=== PATIENT | female | born 1950 | race Caucasian/White ===

== ENCOUNTER 2020-07-17 08:46 | Outpatient (CLI) | payer MEDICARE, SELFPAY | END 2020-07-17 08:47 | disposition home or self-care (01) | LOC: ANHAUDIO 08:47 | PROVIDERS: PCP Family Medicine Adolescent Medicine; Visit Provider Family Medicine Adolescent Medicine | DX: H90.3 Sensorineural hearing loss, bilateral (principal) | CPT/HCPCS: 92557; 92567 ==

== ENCOUNTER → 2020-08-31 14:51 | Outpatient (CLI) | payer MEDICARE, SELFPAY ==
--- NOTE | ~2020-08-31 | MM_ITS ---
EXAMINATION: MM screening [facility] BI w amelie HISTORY: Screening mammogram TECHNIQUE: Craniocaudal and mediolateral oblique 3-D tomosynthesis images were obtained and synthetic 2-D images were generated. CAD analysis was submitted and interpreted. COMPARISON: 12/24/2018, 11/26/2017, bilateral digital screening mammogram examinations BREAST PARENCHYMAL COMPOSITION: There are scattered areas of fibroglandular density. FINDINGS: There are occasional benign calcifications. There is no evidence of suspicious mass, calci fication, or architectural distortion to suggest malignancy in either breast. There has been no suspi cious interval change. IMPRESSION: 1. No mammographic evidence of malignancy. 2. Recommend routine screening mammography in one year. BI-RADS Category 2: Benign finding(s). Reviewed, dictated and finalized at location A. NING DIRECTOR
== END ==
PROVIDERS: PCP Family Medicine Adolescent Medicine; Visit Provider Family Medicine Adolescent Medicine
DX: Z12.31 Encounter for screening mammogram for malignant neoplasm of breast (principal)
CPT/HCPCS: 77063; 77067

== ENCOUNTER → 2020-12-24 01:47 | Outpatient (CLI) | payer MEDICARE, SELFPAY ==
[2020-12-24 20:12] LABS: SARS-CoV-2 RNA PCR Negative
== END ==
PROVIDERS: PCP Family Medicine Adolescent Medicine; Visit Provider Plastic Surgery
DX: Z01.812 Encounter for preprocedural laboratory examination (principal); Z20.822 Contact with and (suspected) exposure to COVID-19
CPT/HCPCS: C9803; U0003; U0005

== ENCOUNTER 2020-12-24 09:38 | Outpatient (CLI) | payer MEDICARE, SELFPAY ==
[2020-12-24 10:31] LABS: Anion Gap 7 mmol/L (8-16); Blood Urea Nitrogen 16 mg/dL (7-17); Calcium 10.1 mg/dL (8.4-10.2); Carbon Dioxide 30 mmol/L (22-30); Chloride 107 mmol/L (98-107); Estimated Glomerular Filt Rate > 60; Glucose 158 mg/dL (65-105); Potassium 4.2 mmol/L (3.4-5.0); Sodium 144 mmol/L (137-145)
--- NOTE | 2020-12-24 11:00 | ECG_ITS ---
Measurements Intervals [place] Rate: 51 P: 52 KS: 166 QRS: -39 QRSD: 92 T: 0 QT: 420 QTc: 389 Interpretive Statements SINUS BRADYCARDIA POSSIBLE LEFT ATRIAL ENLARGEMENT LEFT AXIS DEVIATION INCOMPLETE RIGHT BUNDLE BRANCH BLOCK VOLTAGE CRITERIA FOR LVH POOR R WAVE PROGRESSION, ANTERIOR LEADS BORDERLINE T WAVE ABNORMALITY- INFERIOR LEADS BASELINE ARTIFACT- I, II, III, AVR, AVL, AVF BORDERLINE ECG Electronically Signed On 12-24-2020 9:56:45 CDT by Pee Shankar D.O.
== END 2020-12-24 09:39 | disposition home or self-care (01) ==
LOC: ANHSURGERY 09:41
PROVIDERS: Anesthesiology; PCP Family Medicine Adolescent Medicine; Visit Provider Plastic Surgery
DX: E11.9 Type 2 diabetes mellitus without complications (principal); I10 Essential (primary) hypertension; Z01.818 Encounter for other preprocedural examination; I45.10 Unspecified right bundle-branch block
CPT/HCPCS: 36415; 80048; 93005

== ENCOUNTER 2020-12-27 02:54 | Day surgery (SDC) | payer MEDICARE, SELFPAY ==
[2020-12-20 14:34] VITALS: BMI 32.9
[2020-12-27] VITALS (7 sets, daily range): BP systolic 132–184; BP diastolic 61–96; PULSE 50–56; RESP 10–16; TEMP 36.3–37.5; O2SAT 98–100
--- NOTE | ~2020-12-27 | NM_ITS ---
EXAMINATION: NM sentinel node w imaging EXAM DATE: 12/27/2020 09:59 INDICATION: Melanoma rt forearm. TECHNIQUE: 0.53 mCi Tc-99m Lymphoseek was injected in 2 separate aliquots on either side of the right forearm melanoma biopsy site. Planar images were obtained following this. FINDINGS: After proximally 45 minutes, a focus of activity was demonstrated, appears to be in the an terior aspect of the right axilla, consistent with patient's [place] node for the biopsy site. Elisabeth nt was then transferred to the preoperative area. IMPRESSION: Right axillary sentinel lymph node identified. Reviewed, dictated and finalized at location A.
--- NOTE | 2020-12-27 07:29 | WPDHPUPDATE1 ---
History and Physical Update Update Date/Time: 12/27/20 07:29 History and Physical has been reviewed, including an updated exam of the patient. There are NO changes in the patient's condition. Risks, benefits, and alternatives have been discussed and questions answered. Patient agrees to proceed with procedure.
--- NOTE | 2020-12-27 08:29 | WPDANESEPPF ---
Anes - Initial Pre Proc Eval Procedure: Operation Date: 12/27/20 10:45 Proposed Procedures p Wide Excision Melanoma Right Mid Flexor Forearm with Emeigh Lymph Node Biopsy - Juan White MD Date/Time: 12/27/20 08:29 Surgeon: Juan White MD Pre Op Diagnosis: melanoma right mid flexor forearm Patient Data Age: 70 Gender: F Height: 5 ft 4 in Weight: 87 kg Allergies Allergy/AdvReac Type Severity Reaction Status Date / Time niacin Allergy Intermediate SWELLING Verified 12/20/20 14:30 Home Medications Medication Instructions Recorded Confirmed Type atorvastatin 40 mg PO QAM 12/20/20 12/20/20 History lisinopril 20 mg PO QAM 12/20/20 12/20/20 History metformin 500 mg PO QAM 12/20/20 12/20/20 History metoprolol succinate 200 mg PO QAM 12/20/20 12/20/20 History jgdkwcmljmau-Hz-dsvc-minerals 1 tablet PO QAM 12/20/20 12/20/20 History [Women's Multiple Vitamins] Patient hx anesthesia problems: none Family hx anesthesia problems: none PMFSH Past Medical History Medical History Diabetes Hyperlipidemia Hypertension Melanoma Social History Social History Smoking status: Never smoker Alcohol intake: never Substance use: never Living arrangements: with family Additional living arrangements comments: HUSB Spiritual care concerns: No Anes - Eval Final PreProcedure Day of Procedure 12/27/20 08:29 Patient weight: obese Heart: regular rate and rhythm Lungs: clear to auscultation Airway: Mallampati scale class II Neurological: alert and oriented Last oral intake: >/= 8 hours ASA classification: III Emergent: no Anesthetic plan: proceed Anesthesia type and monitoring: general LMA and standard monitoring Informed Consent: The patient's anesthetic plan and its attendant risks and benefits were discussed with the patient/family/POA. Questions were solicited and answers provided to the satisfaction of the patient/family/POA.
[2020-12-27] MEDS: LACTATED RINGERS 1,000 ML 30 ML IV CONT ×2 (08:40→12:09)
[2020-12-27 08:51] LABS: Glucose Point of Care 174 (65-105)
[2020-12-27] MEDS: SCOPOLAMINE 1.5 MG PATCH TRANSDERM (09:55)
--- NOTE | 2020-12-27 12:00 | PM.OP ---
Procedure Note - Brief Procedure Note - Brief Date of procedure: 12/27/20 Pre-op diagnosis: melanoma right mid flexor forearm Post-op diagnosis: same Procedure performed: Wide, 2.5 cm, excision melanoma right mid flexor forearm with intermediate repair 9.0 cm. and sentinel lymph node biopsy. Anesthesia: GLMA Surgeon: Juan White MD Cupola Melter Helper: Lorena Saxena Estimated blood loss (mL): 10 Tourniquet time (min): 0 Drains: No Packing: No Pathology: yes Complications: No immediate complications Condition: stable Disposition: PACU
--- NOTE | 2020-12-27 12:29 | P.OP_ITS ---
Procedure Note - Detailed Date of procedure: 12/27/20 Pre-op diagnosis: melanoma right mid flexor forearm Post-op diagnosis: same Procedure performed: 2.5 cm excision melanoma of the right mid flexor forearm with intermediate repair 9 cm and right axillary sentinel lymph node biopsy Description of procedure: The patient was marked for the primary tumor site on the forearm and the left axillary sentinel node site identified in [facility] earlier in the morning. The patient was taken to the operating room placed supine on the operating table. She was given general anesthesia with LMA. The right upper extremity and chest were prepped and draped in usual fashion. The probe was immediately brought up to identify the site in the axilla. This appeared to be high in the axilla consistent with a lateral group location. We proceeded to aguilar, anesthetize and incise that site. Dissection was carried through the subcutaneous tissue to the axillary fat pad. The signal from the axillary node was easily identified. This was found in the upper axilla. Dissection was done with digital and cautery dissection primarily. A couple of pedicles were ligated with 3-0 Vicryl. The lymph node was brought out and the count was 227 at the node and 12 in the remaining axillary tissue. A few bleeding points were electrocoagulated. This wound was closed with 3-0 Vicryl and the superficial fascia and dermis. The skin was closed with a running intradermal 4-0 Monocryl suture and glue was applied over that. Markings were made around the forearm biopsy site measuring just over a cm perpendicular to the long axis. This was tapered at both ends. The site was infiltrated with 1% lidocaine with epinephrine. No tourniquet was used. This excision was carried out through the superficial fascia. Larger veins and nerves on the deep fascia were not disturbed.. The subcutaneous tissue was undermined at least a cm in all directions allowing the wound closure be done without significant tension sutures were placed in the superficial fascia using 3-0 Vicryl and 3-0 Vicryl in the dermis. The skin was then closed with a running 5 0 nylon. Standing cones removed both ends. The soft bandage with Tegaderm was applied. The patient was discharged from the operating room in stable condition;. She has a prescription for hydrocodone 5/325 10. Surgeon: Juan White MD
== END 2020-12-27 13:27 | disposition home or self-care (01) ==
PROVIDERS: PCP Family Medicine Adolescent Medicine; Visit Provider Plastic Surgery
PROC: (CPT 11603; principal; 2020-12-27 10:45)
DX: C43.61 Malignant melanoma of right upper limb, including shoulder (principal); C77.3 Secondary and unspecified malignant neoplasm of axilla and upper limb lymph nodes; I10 Essential (primary) hypertension; E78.5 Hyperlipidemia, unspecified; E11.9 Type 2 diabetes mellitus without complications; Z79.84 Long term (current) use of oral hypoglycemic drugs; E66.9 Obesity, unspecified; Z68.33 Body mass index [BMI] 33.0-33.9, adult
CPT/HCPCS: 11603; 12034; 38525; 36415; 78195; 80048; 88305; 88307; 88342; 93005; A9270; A9520; C9803; J1100; J2250; J2405; J2704; J3010; J7120; U0003; U0005

== ENCOUNTER 2021-01-16 07:36 | Outpatient (CLI) | payer MEDICARE, SELFPAY ==
--- NOTE | ~2021-01-16 | CT_ITS ---
EXAMINATION: CT chest abdomen pelvis w con DATE: 01/16/2021 08:16 INDICATION: Malignant melanoma of right upper extremity TECHNIQUE: Computed tomography (CT) of the chest, abdomen, and pelvis was performed with 100 cc Omnip aque 350 intravenous contrast. Automated exposure control and iterative reconstruction technique were employed. Exam dose: 1158.56 mGy-cm total exam DLP. COMPARISON: None FINDINGS: CHEST CT: Probable postoperative change at the right axillary region, including some cutaneous fat stranding ex tending into the deeper subcutaneous fat minute right pectoralis major muscle laterally.. 1.3 x 1.7 cm complex mass is noted at the anterolateral margin of the left lobe of thyroid gland. No hilar or mediastinal mass lesion or lymphadenopathy. No thoracic aortic aneurysm or dissection. Normal heart size. There is extensive coronary artery calcifications in addition aortic and great ves dinesh calcification. Small sliding hiatal hernia. The lungs are clear of infiltrate or consolidation or mass density. ABDOMEN/PELVIS CT: There are occasional scattered hepatic cysts, the largest situated lateral left hepatic segment, mary uring up to 2.8 cm dimension. Hepatic steatosis. Status post cholecystectomy. No bile duct or pancreatic duct dilatation. Normal splenic size. No pancreatic mass lesion or calcification. Normal morphology of the adrenal glands. No renal mass lesion or urinary tract calculus or hydroureteronephrosis. There is extensive calcification of the abdominal aorta and iliac arteries but no aneurysm. No intrap eritoneal or retroperitoneal or pelvic mass lesion or adenopathy or ascites is detected. Normal appendix. No bowel obstruction, bowel wall thickening, pneumatosis or intraperitoneal free air . The uterus, adnexal areas and urinary bladder are unremarkable. Small bilateral fat-containing inguinal hernias. Small fat-containing umbilical hernia. There are degenerative changes apophyseal joints with associated grade 1 anterolisthesis at L4-5. No suspicious osteolytic or osteoblastic lesions. No skin or subcutaneous masses are noted otherwise. IMPRESSION: Postoperative changes at the right axillary area 1.3 x 1.77 a complex mass of the lateral lower left lobe of the thyroid gland; consider thyroid ultra sound for further evaluation as clinically appropriate Small sliding hiatal hernia Hepatic cysts Hepatic steatosis Status post cholecystectomy Reviewed, dictated and finalized at Location A. Reviewed, dictated and finalized at location A. IMPRESSION: Postoperative changes at the right axillary area 1.3 x 1.77 a complex mass of the lateral lower left lobe of the thyroid gland; consider thyroid ultrasound for further evaluation as clinically appropriate Small sliding hiatal hernia Hepatic cysts Hepatic steatosis Status post cholecystectomy
== END 2021-01-16 07:37 | disposition home or self-care (01) ==
PROVIDERS: PCP Family Medicine Adolescent Medicine; Visit Provider Internal Medicine Hematology & Oncology
DX: C43.61 Malignant melanoma of right upper limb, including shoulder (principal); K44.9 Diaphragmatic hernia without obstruction or gangrene; K76.89 Other specified diseases of liver; K76.0 Fatty (change of) liver, not elsewhere classified; Z90.49 Acquired absence of other specified parts of digestive tract
CPT/HCPCS: 71260; 74177; Q9967

== ENCOUNTER 2021-01-18 09:53 | Outpatient (CLI) | payer MEDICARE, SELFPAY ==
[2021-01-18 10:24] LABS: Basophils Absolute Auto 0.1 K/mm3 (0.0-0.1); Eosinophils Absolute Auto 0.1 K/mm3 (0-0.3); Eosinophils Percent Auto 1.8 % (0-4.4); Hematocrit 42.1 % (37.0-47.0); Hemoglobin 13.7 g/dL (12.0-15.0); Immature Granulocyte Absolute 0.02 K/mm3 (0.00-0.031); Immature Granulocyte Percent A 0.3 % (0-0.5); Lymphocytes Percent Auto 30.3 % (18.3-44.2); Mean Corpuscular HGB Conc 32.5 g/dl (32-36); Mean Corpuscular Hemoglobin 28.9 pg (26-34); Mean Corpuscular Volume 88.8 fl (80-100); Mean Platelet Volume 10.3 fl (7.4-10.4); Monocytes Absolute Auto 0.6 K/mm3 (0.1-0.6); Monocytes Percent Auto 9.4 % (2.6-8.5); Neutrophils Absolute Auto 3.6 K/mm3 (1.3-6.7); Neutrophils Percent Auto 57.2 % (45.5-73.1); Platelet Count Result 201 k/mm3 (150-375); Red Blood Count 4.74 M/mm3 (4.2-5.4); Red Cell Distribution Width 12.4 % (11.5-14.5); White Blood Count 6.3 K/mm3 (4.5-10.0)
[2021-01-18 10:34] LABS: INR 0.8
[2021-01-18 10:35] LABS: Partial Thromboplastin Time 26.8 SECONDS (22.3-36.8)
== END 2021-01-18 09:54 | disposition home or self-care (01) ==
LOC: ANHSURGERY 09:55
PROVIDERS: PCP Family Medicine Adolescent Medicine; Visit Provider Surgery
DX: Z01.818 Encounter for other preprocedural examination (principal); C43.9 Malignant melanoma of skin, unspecified
CPT/HCPCS: 36415; 85025; 85610; 85730

== ENCOUNTER → 2021-01-19 01:08 | Outpatient (CLI) | payer MEDICARE, SELFPAY ==
[2021-01-19 20:54] LABS: SARS-CoV-2 RNA PCR Negative
== END ==
PROVIDERS: PCP Family Medicine Adolescent Medicine; Visit Provider Surgery
DX: Z01.812 Encounter for preprocedural laboratory examination (principal); Z20.822 Contact with and (suspected) exposure to COVID-19
CPT/HCPCS: C9803; U0003; U0005

== ENCOUNTER 2021-01-23 04:50 | Day surgery (SDC) | payer MEDICARE, SELFPAY ==
[2021-01-17 08:18] VITALS: BMI 32.9
--- NOTE | 2021-01-22 14:36 | WPDANESEPPF ---
Anes - Initial Pre Proc Eval Procedure: Operation Date: 01/23/21 12:00 Proposed Procedures p Insertion Gerald Cath - Andrade Smyth MD Date/Time: 01/22/21 14:36 Surgeon: Andrade Smyth MD Pre Op Diagnosis: malignant melanoma of right upper extremity Patient Data Age: 71 Gender: F Height: 1.63 m Weight: 87 kg Allergies Allergy/AdvReac Type Severity Reaction Status Date / Time niacin Allergy Severe SWELLING Verified 01/23/21 10:02 OF LIPS/TONGUE Home Medications Medication Instructions Recorded Confirmed Type atorvastatin 40 mg PO QAM 12/20/20 01/23/21 History lisinopril 20 mg PO QAM 12/20/20 01/23/21 History metformin 500 mg PO QAM 12/20/20 01/23/21 History metoprolol succinate 200 mg PO QAM 12/20/20 01/23/21 History ozxrizwhpwfe-Xw-nsog-minerals 1 tablet PO QAM 12/20/20 01/23/21 History [Women's Multiple Vitamins] Tumeric 2,000 mg BYMOUTH DAILY 01/22/21 01/23/21 History lidocaine-prilocaine [Emla] 1 applic TOPICAL ONCE 01/22/21 01/23/21 History loratadine [Claritin] 10 mg PO DAILY 01/22/21 01/23/21 History Patient hx anesthesia problems: none Family hx anesthesia problems: none PMFSH Past Medical History Medical History (Updated 01/23/21 @ 08:10 by Andrade Smyth MD) Arthritis (Unknown) Diabetes Hyperlipidemia (Unknown) Hypertension (Unknown) Melanoma Social History Social History Smoking status: Never smoker Second hand tobacco smoke exposure: No Alcohol intake: never Substance use: never Substance use type: does not use Living arrangements: with family Additional living arrangements comments: HUSB Gender identity (if verbalized by the patient): Female Spiritual care concerns: No Anes - Eval Final PreProcedure Day of Procedure 01/22/21 14:36 Patient weight: obese Heart: regular rate and rhythm Lungs: clear to auscultation and normal air movement Airway: Mallampati scale class II Neurological: alert and oriented Last oral intake: >/= 8 hours ASA classification: III Emergent: no Anesthetic plan: proceed Anesthesia type and monitoring: general GIVS Informed Consent: The patient's anesthetic plan and its attendant risks and benefits were discussed with the patient/family/POA. Questions were solicited and answers provided to the satisfaction of the patient/family/POA.
--- NOTE | ~2021-01-23 | XR_ITS ---
XR chest port-a-cath/central 01/23/2021 13:38 Indication: Portacatheter insertion Procedure: AP portable chest Comparison: No prior studies for comparison. Findings: Heart size normal. Portacatheter tip in the condyle aspect of the SVC. No focal air space d isease, pulmonary edema, pleural effusion or suspected pneumothorax. Impression: 1: No acute cardiopulmonary disease. Reviewed, dictated and finalized at location B. Impression: 1: No acute cardiopulmonary disease.
--- NOTE | ~2021-01-23 | XR_ITS ---
EXAMINATION: XR fl guide central line place EXAM DATE: 01/23/2021 13:11 INDICATION: Gerald catheter insertion. TECHNIQUE: Fluoroscopy used during XR fl guide central line place performed by Dr. Andrade Smyth MD. Radiologist was not present for the imaging or procedure. Total fluoroscopic time of 12 secon ds. The DAP for this procedure was 0.05 mGym2. A total of 2 images obtained for the exam. FINDINGS: Frontal image demonstrates portacatheter, tip projecting over the right atrium, but correl ate with postprocedure chest x-ray. Correlate with procedure note. IMPRESSION: Fluoroscopy used during portacatheter insertion. Reviewed, dictated and finalized at location A.
--- NOTE | 2021-01-23 07:47 | PM.HPGS ---
History of Present Illness History of Present Illness Consent: Risks, benefits, and alternativesOf placement of a Port-A-Cath have been discussed and questions answered. Patient agrees to proceed with procedure. Chief complaint: malignant melanoma of right upper extremity Narrative: Janet Hernandez is a 71 year old female was recently diagnosed with T2, N1, MX stage IIIA malignant melanoma. She is status post wide excision of lesion on her right forearm and a right axillary sentinel lymph node biopsy done on December 27, 2020 that showed metastatic melanoma and 1 of 1 lymph node. Therefore, Dr. Jose jones is planning to continue with immunotherapy and has asked that a Port-A-Cath be placed to facilitate this. The risks, benefits, possible complications of placing the port including bleeding, infection, and possible pneumothorax have all been discussed with the patient and she wishes to proceed. Review of Systems Constitutional: Constitutional: Reports no additional constitutional complaints, Reports fatigue and Denies malaise Eyes: Eyes: Denies change in vision and Denies loss of vision ENT: Reports Normal hearing present, Denies change in voice, Denies dizziness, Denies hoarseness and Denies sore throat Cardiovascular: Cardiovascular: Denies chest pain, Denies leg edema and Denies dyspnea Comments: patient has a history of hypertension and hyperlipidemia. Respiratory: Respiratory: Denies cough, Denies dyspnea and Denies wheezing Gastrointestinal: Gastrointestinal: Denies hematochezia, Denies change in bowel habits and Denies heartburn Comments: Recent CT scan of the abdomen and pelvis shows small bilateral fat containing inguinal hernias and umbilical hernia containing only fat. There is also some hepatosteatosis and cysts of the liver noted. Genitourinary: Genitourinary: Denies urinary frequency and Denies urinary incontinence Musculoskeletal: Comments: Patient has some element of arthritis mainly in the small joints. Neurologic: Reports Normal hearing present, Denies confusion, Denies dizziness, Denies loss of vision, Denies memory loss and Denies seizure-like activity Psychiatric: Psychiatric: Denies confusion, Denies depression and Denies memory loss Endocrine: Endocrine: Denies cold intolerance and Reports fatigue Comments: patient has type 2 diabetes and is on metformin. Hematologic/Lymphatic: Hematologic/Lymphatic: Denies easy bleeding and Denies easy bruising Allergic/Immunologic: Allergic/Immunologic: Denies wheezing PMFSH Past Medical History Medical History (Updated 01/23/21 @ 08:10 by Andrade Smyth MD) Arthritis (Unknown) Diabetes Hyperlipidemia (Unknown) Hypertension (Unknown) Melanoma Social History Social History Smoking status: Never smoker Second hand tobacco smoke exposure: No Alcohol intake: never Substance use: never Substance use type: does not use Living arrangements: with family Additional living arrangements comments: HUSB Gender identity (if verbalized by the patient): Female Spiritual care concerns: No Meds Home Medications and Allergies Home Medications Medication Instructions Recorded Confirmed Type atorvastatin 40 mg PO QAM 12/20/20 01/23/21 History lisinopril 20 mg PO QAM 12/20/20 01/23/21 History metformin 500 mg PO QAM 12/20/20 01/23/21 History metoprolol succinate 200 mg PO QAM 12/20/20 01/23/21 History sylogpfqvecz-Ng-judi-minerals 1 tablet PO QAM 12/20/20 01/23/21 History [Women's Multiple Vitamins] Tumeric 2,000 mg BYMOUTH DAILY 01/22/21 01/23/21 History lidocaine-prilocaine [Emla] 1 applic TOPICAL ONCE 01/22/21 01/23/21 History loratadine [Claritin] 10 mg PO DAILY 01/22/21 01/23/21 History Allergies Allergy/AdvReac Type Severity Reaction Status Date / Time niacin Allergy Severe SWELLING Verified 01/23/21 10:02 OF LIPS/TONGUE Exam Const: General: cooperative
[2021-01-23 09:58] VITALS: BP 217/87; PULSE 55; RESP 20; TEMP 36.1; O2SAT 99
[2021-01-23] MEDS: LACTATED RINGERS 1,000 ML 30 ML IV CONT (10:40)
[2021-01-23] MEDS: KETOROLAC 15 MG/ML VIAL (*BKC) IV PUSH (10:42)
[2021-01-23 10:50] LABS: Glucose Point of Care 151 (65-105)
--- NOTE | 2021-01-23 11:22 | SUR.PREOP ---
1030-DR. JOHNSON AWARE OF B/P, NO ORDERS RECEIVED.
--- NOTE | 2021-01-23 11:46 | SUR.PREOP ---
1145-PT AND AWARE SURGEON IS DELAYED UNTIL 1230 BY PRIOR SURGEON.
--- NOTE | 2021-01-23 12:16 | WPDHPUPDATE1 ---
History and Physical Update Update Date/Time: 01/23/21 12:16 History and Physical has been reviewed, including an updated exam of the patient. There are NO changes in the patient's condition. Risks, benefits, and alternatives of placement of a Port-A-Cath have been discussed and questions answered. Patient agrees to proceed with procedure.
[2021-01-23] MEDS: ceFAZolin 2 GM/D5W 50 ML 2 GM/50 ML BAG IVPB (12:38)
[2021-01-23] MEDS: BUPIVACAINE/EPINEPHRINE 0.5% 30 ML VIAL INFILTRATE (13:13)
[2021-01-23] MEDS: HEPARIN SODIUM 5,000 UNITS/ML VIAL 5000 UNITS IRRIGATION (13:14)
[2021-01-23 13:27] VITALS: BP 145/75; PULSE 58; RESP 15; O2SAT 94
--- NOTE | 2021-01-23 13:45 | SUR.PHASEII ---
Dr. Smyth notified that xray has been taken but not resulted at this time. Per Dr. Smyth imaging looks good and patient is able to eat and drink.
[2021-01-23 13:57] VITALS: BP 153/77; PULSE 51; RESP 16
[2021-01-23 13:57] LABS: Glucose Point of Care 134 (65-105)
[2021-01-23 14:26] VITALS: BP 172/83; PULSE 50; RESP 16
--- NOTE | 2021-01-23 14:45 | PM.PROC ---
Procedure Note - Detailed Date of procedure: 01/23/21 Pre-op diagnosis: malignant melanoma of right upper extremity Post-op diagnosis: same Procedure performed: Ultrasound-guided placement of Port-A-Cath Description of procedure: Patient was seen and marked in the pre-op area prior to coming to the OR. Patient was brought to the operating room. She was placed supine on the operating table and general IV sedation was induced. The nurse marine architect provided oxygen and IV sedation. Patient's head was carefully turned to the left side while in the supine position and the patient's entire neck and anterior chest on both sides was prepped and draped in the usual sterile fashion. Following this the appropriate time-out was completed confirming procedure and patient. We confirmed that all the needed equipment was present in the room. Following this the ultrasound probe was draped into the field and using the probe we carefully identified the carotid artery and jugular vein on the right neck. We saved a picture to the machine and then to the medical record of the normal right neck vascular anatomy. I marked the skin directly over the Rt. internal jugular vein. Local anesthetic was infiltrated over the jugular vein and I made a small slit with an 11 blade knife directly over the right internal jugular vein. Following this, using the continuous ultrasound guidance, a Cook needle was placed through the skin incision into this vein. I then was able to draw back good dark blood. Once this was completed a guidewire using a J-tip was advanced through the needle and then the needle and the guidewire cover were withdrawn. C-arm fluoroscopy was used to confirm that the guidewire was nicely in the venous system. Once this was confirmed with the C - arm I preceded on by making the pocket for the port on the patient's anterior right chest approximately 3 centimeters below the clavicle overlying the chest wall. Local anesthetic was infiltrated into the skin where there was a transverse incision marked out. Incision was made and we made a pocket inferior to the incision with just a little dissection superior. The low-profile port was tried in the pocket and seemed to fit well. Following this the catheter which had been placed on a tunneling device was tunneled from the port site on the anterior right chest up to the right neck where a small incision had been made with an #11 blade knife. Then the catheter was pulled through so that we would have 15 centimeters to put into the central venous system once the dilation took place. Following this we placed the dilator and sheath over the guidewire in the jugular vein and carefully dilated the tract into the central venous system. The guidewire and dilator were then removed, carefully covering the end of the sheath to prevent air embolus. The end of the catheter which had been cut off straight across and the tip checked was then inserted into the sheath and into the neck. I then carefully pulled the 2 arms of the tear-away sheath away as the recovery assistant held the catheter in position with a DeBakey forceps. Following this we checked the position of the catheter with C-arm fluoroscopy confirming that the tip seemed to be in the distal superior vena cava near the junction with the right atrium. I felt that it was in good position and so the rest of the catheter was pulled down toward the feet into the port site. We then measured to the appropriate position to cut the catheter to attach it to the port stem. Then the connector sealing device for the catheter port was placed onto the catheter and then the catheter cut to the appropriate length and inserted onto the stem of the port. Then the connector was advanced onto the stem over the catheter sealing it to the port. A single 3- 0 Prolene suture was also used during this to suture the connector to the port and to the underlying musculature. Following this at one other site the port was suture
== END 2021-01-23 14:30 | disposition home or self-care (01) ==
PROVIDERS: PCP Family Medicine Adolescent Medicine; Visit Provider Surgery
PROC: (CPT 36561; principal; 2021-01-23 12:00)
DX: C43.61 Malignant melanoma of right upper limb, including shoulder (principal); I10 Essential (primary) hypertension; E11.9 Type 2 diabetes mellitus without complications; Z79.84 Long term (current) use of oral hypoglycemic drugs; E78.5 Hyperlipidemia, unspecified; E66.9 Obesity, unspecified; Z68.33 Body mass index [BMI] 33.0-33.9, adult
CPT/HCPCS: 36561; 36415; 76937; 77001; 82948; 85025; 85610; 85730; C1788; C9803; J0690; J1644; J1885; J2704; J3010; J7030; J7120; U0003; U0005

== ENCOUNTER 2021-04-23 12:20 | Outpatient (CLI) | payer MEDICARE, SELFPAY ==
--- NOTE | ~2021-04-23 | US_ITS ---
EXAMINATION:US venous doppler LE LT INDICATION:Left leg edema TECHNIQUE: Multiple grayscale, color flow and Doppler images of the left lower extremity deep venous systems were obtained and reviewed. COMPARISON:No prior studies for comparison. FINDINGS: The common femoral, superficial femoral and popliteal veins demonstrate normal respiratory variation, augmentation and compressibility. Color flow is also seen within the posterior tibial, pe roneal, greater saphenous and profunda veins. There is a complicated Clements's cyst measuring 13.3 x 1.3 x 3.1 cm. IMPRESSION: 1: No lower extremity deep venous thrombosis. Reviewed, dictated and finalized at location A.
== END 2021-04-23 12:21 | disposition home or self-care (01) ==
PROVIDERS: PCP Family Medicine Adolescent Medicine; Visit Provider Family Medicine Adolescent Medicine
DX: R22.42 Localized swelling, mass and lump, left lower limb (principal); M71.22 Synovial cyst of popliteal space [Baker], left knee
CPT/HCPCS: 93971

== ENCOUNTER → 2021-12-23 09:49 | Outpatient (CLI) | payer MEDICARE, SELFPAY ==
--- NOTE | ~2021-12-23 | MM_ITS ---
EXAMINATION: MM screening [facility] BI w amelie HISTORY: Screening mammogram TECHNIQUE: Craniocaudal and mediolateral oblique 3-D tomosynthesis images were obtained and synthetic 2-D images were generated. CAD analysis was submitted and interpreted. COMPARISON: 08/31/2020, 12/24/2018, 11/26/2017 BREAST PARENCHYMAL COMPOSITION: There are scattered areas of fibroglandular density. FINDINGS: There is no suspicious mass, calcification, or architectural distortion to suggest malignan cy in either breast. There has been no suspicious interval change. IMPRESSION: 1. No mammographic evidence of malignancy. 2. Recommend routine screening mammography in one year. BI-RADS Category 1: Negative Reviewed, dictated and finalized at location A.
== END ==
PROVIDERS: PCP Family Medicine Adolescent Medicine; Visit Provider Family Medicine Adolescent Medicine
DX: Z12.31 Encounter for screening mammogram for malignant neoplasm of breast (principal)
CPT/HCPCS: 77063; 77067

== ENCOUNTER 2022-03-11 08:22 | Outpatient (CLI) | payer MEDICARE, SELFPAY ==
--- NOTE | ~2022-03-11 | CT_ITS ---
EXAMINATION:CT diagnostic chest wo con DATE: 03/11/2022 08:50 INDICATION: Malignant melanoma of right upper extremity. TECHNIQUE: Computed tomography (CT) of the chest was performed without intravenous contrast. Automate d exposure control and iterative reconstruction technique were employed. The dose-length product (DLP ) was 179.25 mGy-cm. COMPARISON: Chest CT 01/16/2021 FINDINGS: There is mild scarring at the lung apices. Calcified pulmonary nodules are consistent with old granulomatous disease. No pleural effusion. There is a right internal jugular port with tip in ri ght atrium. The heart size is normal. There are coronary artery calcifications. No pericardial effusi on. There is a small sliding hiatal hernia. There is a 1.9 cm nodule in left thyroid lobe status post benign biopsy on 01/06/19. There is a 2.7 cm cyst in the liver. There are changes of cholecystectomy. There is mild thoracic spondylosis. IMPRESSION: 1. No evidence of metastatic disease. Reviewed, dictated and finalized at location B.
== END 2022-03-11 08:23 | disposition home or self-care (01) ==
PROVIDERS: PCP Family Medicine Adolescent Medicine; Visit Provider Internal Medicine Hematology & Oncology
DX: C43.61 Malignant melanoma of right upper limb, including shoulder (principal); K44.9 Diaphragmatic hernia without obstruction or gangrene; M47.814 Spondylosis without myelopathy or radiculopathy, thoracic region; I25.10 Atherosclerotic heart disease of native coronary artery without angina pectoris
CPT/HCPCS: 71250

== ENCOUNTER 2022-07-01 09:44 | Outpatient (CLI) | payer MEDICARE, SELFPAY ==
--- NOTE | ~2022-07-01 | US_ITS ---
US abdomen complete EXAMINATION: US Abdomen Complete INDICATION: Irregular liver enzymes PROCEDURE: Realtime High Resolution abdomen ultrasound. COMPARISON: No prior studies for comparison FINDINGS: Gallbladder is surgically absent. Common bile duct measures 5 mm. There is a left renal cyst measuring 2.8 cm. Pancreas within normal limits. Pancreatic tail is obscu red by bowel gas. Spleen is unremarkeable. Renal echotexture is within normal limits bilaterally wit hout hydronephrosis, contour deforming mass or renal stone. Right kidney measures 10.3 cm. Left kidne y measures 10.1 cm. Visualized aspects of the aorta and IVC are within normal limits. Portal vein is patent. No sonograph ic Hector's sign indicated by the technologist. IMPRESSION: 1: Liver cyst measuring 2.8 cm. Reviewed, dictated and finalized at location A.
== END 2022-07-01 09:45 | disposition home or self-care (01) ==
PROVIDERS: PCP Family Medicine Adolescent Medicine; Visit Provider Internal Medicine Hematology & Oncology
DX: C43.61 Malignant melanoma of right upper limb, including shoulder (principal); K76.89 Other specified diseases of liver
CPT/HCPCS: 76700

== ENCOUNTER 2022-09-02 09:51 | Outpatient (CLI) | payer MEDICARE, SELFPAY | END 2022-09-02 09:52 | disposition home or self-care (01) | LOC: ANHAUDIO 09:52 | PROVIDERS: PCP Family Medicine Adolescent Medicine; Visit Provider Family Medicine Adolescent Medicine | DX: H90.3 Sensorineural hearing loss, bilateral (principal) | CPT/HCPCS: 92557; 92567 ==

== ENCOUNTER 2022-09-16 08:49 | Outpatient (CLI) | payer MEDICARE, SELFPAY ==
--- NOTE | ~2022-09-16 | CT_ITS ---
EXAMINATION:CT diagnostic chest w con DATE: 09/16/2022 09:30 INDICATION: Melanoma of right upper extremity. TECHNIQUE: Computed tomography (CT) of the chest was performed with 75 mL Omnipaque 350 intravenous c ontrast. Automated exposure control and iterative reconstruction technique were employed. The dose-le ngth product (DLP) was 178.59 mGy-cm. COMPARISON: Chest CT 03/11/2022 FINDINGS: There is mild scarring at the lung apices. There is mild dependent atelectasis bilaterally. No pleural effusion. There is a 15 mm nodule in left thyroid lobe status post benign biopsy on 2018. The heart size is normal. There are coronary artery calcifications. No pericardial effusion. Th ere is a right internal jugular port with tip in right atrium. There are no pathologically enlarged l ymph nodes. There is a small sliding hiatal hernia. There are cysts in the liver measuring up to 3.1 cm. There are changes of cholecystectomy. There is mild thoracic spondylosis. There is mild chronic a nterior wedging of multiple vertebral bodies. IMPRESSION: 1. No evidence of metastatic disease. Reviewed, dictated and finalized at location A. PHONE INSTALLER
== END 2022-09-16 08:50 | disposition home or self-care (01) ==
PROVIDERS: PCP Family Medicine Adolescent Medicine; Visit Provider Internal Medicine Hematology & Oncology
DX: C43.61 Malignant melanoma of right upper limb, including shoulder (principal)
CPT/HCPCS: 71260; Q9967

== ENCOUNTER 2022-09-17 12:49 | Outpatient (CLI) | payer MEDICARE, SELFPAY | END 2022-09-17 12:50 | disposition home or self-care (01) | LOC: ANHAUDIO 12:49 | PROVIDERS: PCP Family Medicine Adolescent Medicine; Visit Provider Family Medicine Adolescent Medicine | DX: H91.93 Unspecified hearing loss, bilateral (principal) | CPT/HCPCS: 99199 ==

== ENCOUNTER 2022-10-08 00:41 | Day surgery (SDC) | payer MEDICARE, SELFPAY ==
[2022-09-23 13:48] VITALS: BMI 29.9
--- NOTE | 2022-10-07 13:02 | PM.HPGS ---
History of Present Illness History of Present Illness Consent: Risks, benefits, and alternatives have been discussed and questions answered. Patient agrees to proceed with procedure. Chief complaint: Hx of colon polyps Narrative: Janet Hernandez is a 72 year old female Referred for colon cancer screening. Eight years ago she had a colonoscopy with removal of 3 polyps, 1 of which was a tubular adenoma. Review of Systems Review of Systems: All systems reviewed & are unremarkable except as noted in HPI and below PMFSH Past Medical History Medical History Arthritis (Unknown) Diabetes Hyperlipidemia (Unknown) Hypertension (Unknown) Melanoma Port-A-Cath in place Surgical History Surgical History History of thyroid surgery (2009) Right hemithyroidectomy Hurthle cell adenoma Hx of cholecystectomy Hx of tubal ligation Family History Family History Father Hypertension Malignant neoplasm of prostate Mother Diabetes mellitus Grandparent Diabetes mellitus Social History Social History Smoking status: Never smoker Second hand tobacco smoke exposure: No Alcohol intake: never Substance use: never Substance use type: does not use Living arrangements: with family Additional living arrangements comments: [facility] Gender identity (if verbalized by the patient): Female Sexual Orientation (if Verbalized by the Patient): Straight or Heterosexual Spiritual care concerns: No Agree to blood products: Yes Meds Home Medications and Allergies Home Medications Medication Instructions Recorded Confirmed Type sncsesqgyydc-Kz-sxve-minerals 18 1 tablet PO QAM 12/20/20 09/23/22 History mg-0.4 mg tablet lidocaine-prilocaine 2.5 %-2.5 % 1 applic topical ONCE 01/22/21 09/23/22 History topical cream loratadine 10 mg tablet (Claritin) 10 mg PO DAILY 01/22/21 09/23/22 History atorvastatin 40 mg tablet 40 mg PO QAM #90 tabs 06/13/22 09/23/22 Rx glimepiride 1 mg tablet 1 mg PO QAM #90 tabs 08/06/22 09/23/22 Rx lisinopril 20 mg tablet 20 mg PO QAM #90 tabs 08/22/22 09/23/22 Rx metoprolol succinate 200 mg 200 mg PO QAM #90 tabs 08/25/22 10/08/22 Rx tablet,extended release 24 hr metformin 500 mg tablet,extended 500 mg PO DAILY #90 tabs 10/01/22 Rx release 24 hr Allergies Allergy/AdvReac Type Severity Reaction Status Date / Time niacin Allergy Severe SWELLING Verified 10/08/22 06:15 OF LIPS/TONGUE Exam Resp: Auscultation: clear to auscultation bilaterally Cardio: Rate: regular rate Rhythm: regular rhythm GI: GI Palp: Yes Soft to palpation and No Tenderness to palpation present (GI) Assessment and Plan Assessment and plan (1) Colon cancer screening: Code(s): Z12.11 - Encounter for screening for malignant neoplasm of colon Status: Acute Assessment and Plan: Colonoscopy with possible biopsy or polypectomy or cautery or injection of substances.
[2022-10-08 06:16] VITALS: BP 166/82; PULSE 61; RESP 18; TEMP 36.1; O2SAT 99
[2022-10-08] MEDS: LACTATED RINGERS 1,000 ML 150 ML IV CONT (06:35)
[2022-10-08 06:41] LABS: Glucose Point of Care 138 mg/dl (65-105)
--- NOTE | 2022-10-08 07:18 | WPDANESEPPF ---
Anes - Initial Pre Proc Eval Procedure: Operation Date: 10/08/22 07:30 Proposed Procedures p Screening Colonoscopy - Deni Armstrong MD Date/Time: 10/08/22 07:18 Surgeon: Deni Armstrong MD Pre Op Diagnosis: Hx of colon polyps Patient Data Age: 72 Gender: F Height: 1.63 m Weight: 78.3 kg Last Vital Signs Temp 97 F L 10/08/22 06:16 Pulse 61 10/08/22 06:16 Resp 18 10/08/22 06:16 BP 166/82 H 10/08/22 06:16 Pulse Ox 99 10/08/22 06:16 O2 Del Method Room Air 10/08/22 06:16 Allergies Allergy/AdvReac Type Severity Reaction Status Date / Time niacin Allergy Severe SWELLING Verified 10/08/22 06:15 OF LIPS/TONGUE Home Medications Medication Instructions Recorded Confirmed Type yoynexgfrftb-Uz-gyre-minerals 18 1 tablet PO QAM 12/20/20 09/23/22 History mg-0.4 mg tablet lidocaine-prilocaine 2.5 %-2.5 % 1 applic topical ONCE 01/22/21 09/23/22 History topical cream loratadine 10 mg tablet (Claritin) 10 mg PO DAILY 01/22/21 09/23/22 History atorvastatin 40 mg tablet 40 mg PO QAM #90 tabs 06/13/22 09/23/22 Rx glimepiride 1 mg tablet 1 mg PO QAM #90 tabs 08/06/22 09/23/22 Rx lisinopril 20 mg tablet 20 mg PO QAM #90 tabs 08/22/22 09/23/22 Rx metoprolol succinate 200 mg 200 mg PO QAM #90 tabs 08/25/22 10/08/22 Rx tablet,extended release 24 hr metformin 500 mg tablet,extended 500 mg PO DAILY #90 tabs 10/01/22 Rx release 24 hr Laboratory Tests 10/08/22 06:33 POC Capillary Glucose 138 mg/dl H mg/dl (65-105) Patient hx anesthesia problems: none Family hx anesthesia problems: none Results Review: All pre-operative results and documents have been reviewed as part of the pre-operative evaluation. [facility] Past Medical History Medical History (Updated 10/07/22 @ 13:02 by Deni Armstrong MD) Arthritis (Unknown) Diabetes Hyperlipidemia (Unknown) Hypertension (Unknown) Melanoma Port-A-Cath in place Surgical History Surgical History (Updated 08/05/22 @ 06:56 by Hadley Murphy MD) History of thyroid surgery (2009) Right hemithyroidectomy Hurthle cell adenoma Hx of cholecystectomy Hx of tubal ligation Family History Family History (Updated 03/04/22 @ 15:39 by Rosenda Sanchez MA) Father Hypertension Malignant neoplasm of prostate Mother Diabetes mellitus Grandparent Diabetes mellitus Social History Social History (Updated 03/04/22 @ 15:40 by Rosenda Sanchez MA) Smoking status: Never smoker Second hand tobacco smoke exposure: No Alcohol intake: never Substance use: never Substance use type: does not use Living arrangements: with family Additional living arrangements comments: CANDI Gender identity (if verbalized by the patient): Female Sexual Orientation (if Verbalized by the Patient): Straight or Heterosexual Spiritual care concerns: No Agree to blood products: Yes Anes - Eval Final PreProcedure Day of Procedure 10/08/22 07:18 Patient weight: normal Heart: regular rate and rhythm Lungs: clear to auscultation Airway: Mallampati scale class II Neurological: alert and oriented Last oral intake: >/= 8 hours ASA classification: III Emergent: no Anesthetic plan: proceed Anesthesia type and monitoring: general GIVS and standard monitoring Results Review: All pre-operative results and documents have been reviewed as part of the pre-operative evaluation. Informed Consent: The patient's anesthetic plan and its attendant risks and benefits were discussed with the patient/family/POA. Questions were solicited and answers provided to the satisfaction of the patient/family/POA.
[2022-10-08 07:43] VITALS: BP 124/53; PULSE 57; RESP 16; O2SAT 98
[2022-10-08 07:54] VITALS: BP 131/75; PULSE 60; RESP 14; O2SAT 99
[2022-10-08 08:03] VITALS: BP 140/71; PULSE 56; RESP 18; O2SAT 99
== END 2022-10-08 08:11 | disposition home or self-care (01) ==
PROVIDERS: PCP Family Medicine Adolescent Medicine; Visit Provider Internal Medicine Gastroenterology
PROC: 0DJD8ZZ Inspection of Lower Intestinal Tract, Via Natural or Artificial Opening Endoscopic (ICD-10-PCS; CPT 45378; principal; 2022-10-08 07:30)
DX: Z12.11 Encounter for screening for malignant neoplasm of colon (principal); K57.30 Diverticulosis of large intestine without perforation or abscess without bleeding; K64.8 Other hemorrhoids; Z86.010 Personal history of colon polyps; E11.9 Type 2 diabetes mellitus without complications; E78.5 Hyperlipidemia, unspecified; I10 Essential (primary) hypertension; Z85.820 Personal history of malignant melanoma of skin; Z79.84 Long term (current) use of oral hypoglycemic drugs
CPT/HCPCS: G0105; 82948; J2704; J7120

== ENCOUNTER 2022-11-12 11:00 | Outpatient (RCR) | payer MEDICARE, SELFPAY | END 2022-11-12 23:59 | disposition home or self-care (01) | LOC: ANHAUDIO 11:00 | PROVIDERS: PCP Family Medicine Adolescent Medicine; Visit Provider Family Medicine Adolescent Medicine | DX: Z46.1 Encounter for fitting and adjustment of hearing aid (principal) | CPT/HCPCS: 99199; V5261 ==

== ENCOUNTER 2023-01-16 08:07 | Outpatient (CLI) | payer MEDICARE, SELFPAY ==
[2023-01-16 08:27] LABS: Basophils Absolute Auto 0.1 K/mm3 (0.0-0.1); Basophils Percent Auto 0.9 % (0.2-1.2); Eosinophils Absolute Auto 0.2 K/mm3 (0-0.3); Eosinophils Percent Auto 3.3 % (0-4.4); Hematocrit 45.2 % (37.0-47.0); Hemoglobin 14.4 g/dL (12.0-15.0); Immature Granulocyte Absolute 0.01 K/mm3 (0.00-0.031); Immature Granulocyte Percent A 0.1 % (0-0.5); Lymphocytes Absolute Auto 1.93 K/mm3 (0.9-3.2); Lymphocytes Percent Auto 27.4 % (18.3-44.2); Mean Corpuscular HGB Conc 31.9 g/dl (32-36); Mean Corpuscular Hemoglobin 28.8 pg (26-34); Mean Corpuscular Volume 90.4 fl (80-100); Mean Platelet Volume 9.9 fl (7.4-10.4); Monocytes Absolute Auto 0.6 K/mm3 (0.1-0.6); Monocytes Percent Auto 8.9 % (2.6-8.5); Neutrophils Absolute Auto 4.2 K/mm3 (1.3-6.7); Neutrophils Percent Auto 59.4 % (45.5-73.1); Platelet Count Result 192 k/mm3 (150-375); Red Cell Distribution Width 12.8 % (11.5-14.5)
[2023-01-16 09:14] LABS: Cholesterol 134 mg/dL (0-200); HDL Direct 36 mg/dL; Triglycerides 99 mg/dL (<150)
[2023-01-16 09:43] LABS: Alanine Aminotransferase 28 U/L (6-35); Albumin Level 4.5 g/dL (3.5-5.1); Alkaline Phosphatase 117 U/L (38-126); Anion Gap 6 mmol/L (8-16); Aspartate Amino Transferase 24 U/L (14-36); Bilirubin,Total 0.7 mg/dL (0.2-1.3); Blood Urea Nitrogen 21 mg/dL (7-17); Calcium 10.5 mg/dL (8.4-10.2); Carbon Dioxide 31 mmol/L (22-30); Chloride 105 mmol/L (98-107); Estimated Glomerular Filt Rate > 60; Glucose 140 mg/dL (65-110); Potassium 4.3 mmol/L (3.4-5.0); Sodium 142 mmol/L (137-145)
[2023-01-16 09:49] LABS: LDL Cholesterol Direct 75 mg/dL
[2023-01-16 10:08] LABS: Thyroid Stimulating Hormone 0.015 uIU/mL (0.465-4.680)
[2023-01-16 10:33] LABS: Hemoglobin A1C 6.5 % (<5.7)
== END 2023-01-16 08:08 | disposition home or self-care (01) ==
LOC: ANHLAB 08:09
PROVIDERS: PCP Family Medicine Adolescent Medicine; Visit Provider Internal Medicine Hematology & Oncology
DX: E11.29 Type 2 diabetes mellitus with other diabetic kidney complication (principal); R53.83 Other fatigue; E78.2 Mixed hyperlipidemia; C43.61 Malignant melanoma of right upper limb, including shoulder
CPT/HCPCS: 36415; 80053; 80061; 83036; 84443; 85025

== ENCOUNTER 2023-03-02 01:38 | Day surgery (SDC) | payer MEDICARE, SELFPAY ==
[2023-02-20 11:34] VITALS: BMI 31.0
--- NOTE | 2023-02-20 11:50 | PC.NURSE ---
Report to the Outpatient Waiting Room, entrance under the green pavilion located off [facility], at time __6:00AM on date __03/02/23 . Planned Procedure Time: __7:30AM . Time changes happen often and if your time is changed the preop area will call you the afternoon before. - You and your visitor will be asked to self-screen and do not enter if you have any COVID symptoms. - A mask is optional within the hospital at this time. Patients may have clear liquids (water, carbonated beverages, clear teas, apple juice) until 3 hours prior to surgery with a maximum of 20 ounces. - No food from midnight until time of surgery Take the following medications with a SIP of water the morning of surgery: __METOPROLOL DO NOT STOP ANY OF YOUR OTHER PRESCRIPTION MEDICATIONS PRIOR TO SURGERY ?EXCEPT THE FOLLOWING Medications to discontinue per physician ___NONE Date to take last dose Please no make-up, nail romansh, hairspray, perfume, deodorant, or body powder the day of surgery. No jewelry (including any body piercings) or valuables the day of surgery, leave them at home. Please take a shower or bath the night before, or the morning of, surgery with an antibacterial soap. Wear comfortable, loose fitting clothing. Children are encouraged to wear pajamas. - Jewelry must be removed prior to entering the operating room. Rings and piercings that are not removed may be cut off. - The hospital will not accept responsibility for valuables. - Please leave all valuables, including medications, at home the day of surgery. If you are going home after surgery, a licensed non cdl driver must drive you home. - NO public transportation without another adult if you receive anesthesia. - We recommend that an adult stay with you for 24 hours following discharge. - We also recommend that you do not drive, make important decision, drink alcoholic beverages, or take any drugs that were not prescribed by your health care provider for at least 24 hours after your discharge time. Follow any additional instructions given to you from your surgeon. If you or anyone in your household have experienced Covid symptoms in the past week, please notify your surgeon or the nurse liaison at the phone number below for possible testing. Telephone instructions given to _PATIENT and asked if any additional questions and then verbalized understanding. Patient advised to call surgeon office or pre surgery nurse liaison [phone] if any additional questions.
[2023-03-02 06:16] VITALS: BP 167/91; PULSE 53; RESP 16; TEMP 36.6; O2SAT 100
[2023-03-02 07:03] LABS: Glucose Point of Care 144 mg/dl (65-105)
--- NOTE | 2023-03-02 07:09 | WPDANESEPPF ---
Anes - Initial Pre Proc Eval Procedure: Operation Date: 03/02/23 07:30 Proposed Procedures p Removal Gerald Cath - Guanaco Lopez MD Date/Time: 03/02/23 07:09 Surgeon: Guanaco Lopez MD Pre Op Diagnosis: hx of melanoma of upper ex Patient Data Age: 73 Gender: F Height: 1.63 m Weight: 82 kg Allergies Allergy/AdvReac Type Severity Reaction Status Date / Time niacin Allergy Severe SWELLING Verified 03/02/23 06:46 OF LIPS/TONGUE Home Medications Medication Instructions Recorded Confirmed Type lidocaine-prilocaine 2.5 %-2.5 % 1 applic topical ONCE 01/22/21 02/20/23 History topical cream loratadine 10 mg tablet (Claritin) 10 mg PO DAILY 01/22/21 03/02/23 History lisinopril 20 mg tablet 20 mg PO QAM #90 tabs 08/22/22 03/02/23 Rx metoprolol succinate 200 mg 200 mg PO QAM #90 tabs 08/25/22 03/02/23 Rx tablet,extended release 24 hr atorvastatin 40 mg tablet 40 mg PO QAM #90 tabs 12/22/22 03/02/23 Rx glimepiride 1 mg tablet 1 mg PO QAM #90 tabs 12/22/22 03/02/23 Rx metformin 500 mg tablet,extended 500 mg PO QAM 02/20/23 03/02/23 History release 24 hr naproxen sodium 220 mg capsule 440 mg PO BID PRN Pain 02/20/23 02/20/23 History (Aleve) Laboratory Tests 03/02/23 06:59 POC Capillary Glucose 144 H mg/dl (65-105) Patient hx anesthesia problems: none Family hx anesthesia problems: none Results Review: All pre-operative results and documents have been reviewed as part of the pre-operative evaluation. [facility] Past Medical History Medical History Arthritis (Unknown) Diabetes Hyperlipidemia (Unknown) Hypertension (Unknown) Melanoma Port-A-Cath in place Surgical History Surgical History History of thyroid surgery (2009) Right hemithyroidectomy Hurthle cell adenoma Hx of cholecystectomy Hx of tubal ligation Family History Family History Father Hypertension Malignant neoplasm of prostate Mother Diabetes mellitus Grandparent Diabetes mellitus Social History Social History Smoking status: Never smoker Second hand tobacco smoke exposure: No Alcohol intake: never Substance use: never Substance use type: does not use Living arrangements: with family Additional living arrangements comments: HUSB Occupation/Education: retired Gender identity (if verbalized by the patient): Female Sexual Orientation (if Verbalized by the Patient): Straight or Heterosexual Spiritual care concerns: No Agree to blood products: Yes Anes - Eval Final PreProcedure Day of Procedure 03/02/23 07:09 Patient weight: obese Heart: regular rate and rhythm Lungs: clear to auscultation Airway: Mallampati scale class II Neurological: alert and oriented Last oral intake: >/= 8 hours ASA classification: III Emergent: no Anesthetic plan: proceed Anesthesia type and monitoring: general GIVS and standard monitoring Results Review: All pre-operative results and documents have been reviewed as part of the pre-operative evaluation. Informed Consent: The patient's anesthetic plan and its attendant risks and benefits were discussed with the patient/family/POA. Questions were solicited and answers provided to the satisfaction of the patient/family/POA.
[2023-03-02] MEDS: LACTATED RINGERS 1,000 ML 30 ML IV CONT (07:18)
--- NOTE | 2023-03-02 07:22 | PM.IMHP ---
H&P: HPI History of Present Illness Date/Time: 03/02/23 07:22 Chief Complaint: Hx of melanoma, needs port removed. Narrative: Pt with hx of melanoma, treated with chemo tx and disease free x 18 months. Now needs port removed. Review of Systems Review of Systems: The remainder of the review of systems to include constitutional, HEENT, cardiovascular, respiratory, GI, , integumentary, musculoskeletal, endocrine, immunologic, hematologic, psychiatric, and neurologic are all negative except for which is mentioned above in the HPI. [facility] Past Medical History Medical History Arthritis (Unknown) Diabetes Hyperlipidemia (Unknown) Hypertension (Unknown) Melanoma Port-A-Cath in place Surgical History Surgical History History of thyroid surgery (2009) Right hemithyroidectomy Hurthle cell adenoma Hx of cholecystectomy Hx of tubal ligation Family History Family History Father Hypertension Malignant neoplasm of prostate Mother Diabetes mellitus Grandparent Diabetes mellitus Social History Social History Smoking status: Never smoker Second hand tobacco smoke exposure: No Alcohol intake: never Substance use: never Substance use type: does not use Living arrangements: with family Additional living arrangements comments: HUSB Occupation/Education: retired Gender identity (if verbalized by the patient): Female Sexual Orientation (if Verbalized by the Patient): Straight or Heterosexual Spiritual care concerns: No Agree to blood products: Yes Meds Home Medications and Allergies Home Medications Medication Instructions Recorded Confirmed Type lidocaine-prilocaine 2.5 %-2.5 % 1 applic topical ONCE 01/22/21 02/20/23 History topical cream loratadine 10 mg tablet (Claritin) 10 mg PO DAILY 01/22/21 03/02/23 History lisinopril 20 mg tablet 20 mg PO QAM #90 tabs 08/22/22 03/02/23 Rx metoprolol succinate 200 mg 200 mg PO QAM #90 tabs 08/25/22 03/02/23 Rx tablet,extended release 24 hr atorvastatin 40 mg tablet 40 mg PO QAM #90 tabs 12/22/22 03/02/23 Rx glimepiride 1 mg tablet 1 mg PO QAM #90 tabs 12/22/22 03/02/23 Rx metformin 500 mg tablet,extended 500 mg PO QAM 02/20/23 03/02/23 History release 24 hr naproxen sodium 220 mg capsule 440 mg PO BID PRN Pain 02/20/23 02/20/23 History (Aleve) Allergies Allergy/AdvReac Type Severity Reaction Status Date / Time niacin Allergy Severe SWELLING Verified 03/02/23 06:46 OF LIPS/TONGUE Vital Signs Vital Signs - 24 hr 03/02/23 06:16 Temperature 36.6 C Pulse Rate 53 L Respiratory Rate 16 Blood Pressure 167/91 H Pulse Oximetry 100 Oxygen Delivery Room Air Exam Chest: Other: Right anterior chest port with catheter inserting into right IJ vein. No redness or rashes. 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 Will remove portacatheter today.
--- NOTE | 2023-03-02 07:26 | WPDHPUPDATE1 ---
History and Physical Update Update Date/Time: 03/02/23 07:26 History and Physical has been reviewed, including an updated exam of the patient. There are NO changes in the patient's condition. Risks, benefits, and alternatives have been discussed and questions answered. Patient agrees to proceed with procedure.
[2023-03-02] MEDS: ceFAZolin 2 GM/D5W 50 ML 2 GM/50 ML BAG IVPB (07:31)
[2023-03-02] MEDS: LIDO 1%/EPINEPHRINE 1:100,000 50 ML VIAL 10 ML INFILTRATE (07:37)
[2023-03-02] MEDS: BUPivacaine HCL 0.5% PF 30 ML VIAL 10 ML INFILTRATE (07:37)
--- NOTE | 2023-03-02 08:06 | W.PM.PROC2 ---
Procedure Note - Detailed Date of Procedure 03/02/23 Pre-op Diagnosis hx of melanoma of upper ex Post-op Diagnosis Same Procedure Performed Removal right internal jugular vein red catheter Surgeon Guanaco Lopez MD Survey Party Chief Rosalina Christopher [facility] Anesthesia MAC Indications Patient is a 73-year-old female who has a history of melanoma of the upper extremity she underwent chemotherapy treatments and has been disease free for about 18 months. She now presents for removal of the red catheter. Findings None Description of Procedure After informed consent was obtained patient brought to the operating room she is placed supine position and then IV sedation was administered by anesthesia. The right upper anterior chest and neck was then prepped and draped in usual sterile fashion. Time-out was then performed correctly identifying the patient as well as procedure to be performed. Site marking was verified she was given Ancef for perioperative IV antibiotics. 1% lidocaine mixed with 0.5% Marcaine was injected around the port for local anesthetic effect. And made a transverse incision through the old scar with a scalpel and dissected down through the deep dermis skin with a scalpel. Electrocautery was then used to dissect down through the subcutaneous tissues until I reached the hub of the port. The catheter as it inserted into the port was dissected out circumferentially and then with gentle traction the catheter was removed from the right internal jugular vein. Pressure was then held in the area of the right internal jugular vein for several minutes to achieve hemostasis. The port was then dissected out the subcutaneous port pocket electrocautery. The fibrous capsule around the port was then fulgurated with electrocautery. The port and catheter is passed off table discarded. I then irrigated out the incision sterile saline solution hemostasis was achieved electrocautery. Incision was then closed utilizing interrupted 3-0 Vicryl sutures in the subcutaneous tissues. The skin edges were then approximated utilizing a running subcuticular 4 Monocryl suture. The incision was then cleaned and then skin glue was applied for final dressing. The patient tolerated the procedure well no complications. All sponges, needles, and instrument counts were correct at the end procedure. EBL was _2__cc. The patient was awakened and taken to recovery in stable and satisfactory condition. Implants None Estimated Blood Loss 2 Drains No Packing No Pathology None sent Complications No immediate complications Condition Stable Disposition PACU [facility] Billing Surgery - Charge Forward: Surgery Billing
[2023-03-02 08:07] VITALS: BP 157/76; PULSE 50; RESP 20; O2SAT 97
[2023-03-02 08:20] LABS: Glucose Point of Care 144 mg/dl (65-105)
[2023-03-02 08:35] VITALS: BP 171/82; PULSE 50; RESP 20
== END 2023-03-02 08:46 | disposition home or self-care (01) ==
PROVIDERS: PCP Family Medicine Adolescent Medicine; Visit Provider Surgery
PROC: (CPT 36589; principal; 2023-03-02 07:30)
DX: Z45.2 Encounter for adjustment and management of vascular access device (principal); Z85.820 Personal history of malignant melanoma of skin; I10 Essential (primary) hypertension; E78.5 Hyperlipidemia, unspecified; E11.9 Type 2 diabetes mellitus without complications; Z79.84 Long term (current) use of oral hypoglycemic drugs
CPT/HCPCS: 36590; 82948; J0690; J2704; J7120

== ENCOUNTER → 2023-03-05 10:37 | Outpatient (CLI) | payer MEDICARE, SELFPAY ==
--- NOTE | ~2023-03-05 | MM_ITS ---
EXAMINATION: MM screening chuy BI w amelie HISTORY: Screening TECHNIQUE: Craniocaudal and mediolateral oblique 3-D tomosynthesis images were obtained and synthetic 2-D images were generated. CAD analysis was submitted and interpreted. COMPARISON: Comparison to multiple prior studies sequentially, with oldest reviewed study dated 10/26. BREAST PARENCHYMAL COMPOSITION: Breast composed of scattered areas of fibroglandular density FINDINGS: There is no evidence of suspicious mass, calcification, or architectural distortion to sugg est malignancy in either breast. There has been no suspicious interval change. IMPRESSION: 1. No mammographic evidence of malignancy. 2. Recommend routine screening mammography in one year. BI-RADS Category 1: Negative Reviewed, dictated and finalized at location A.
== END ==
PROVIDERS: PCP Family Medicine Adolescent Medicine; Visit Provider Family Medicine Adolescent Medicine
DX: Z12.31 Encounter for screening mammogram for malignant neoplasm of breast (principal)
CPT/HCPCS: 77063; 77067